=== PATIENT | female | born 1990 | race Caucasian/White ===

== ENCOUNTER 2020-08-15 13:29 | Outpatient (CLI) | payer BC | END 2020-08-15 13:30 | disposition home or self-care (01) | LOC: CSHMRI 13:29 | PROVIDERS: ATTEND Nurse Practitioner Acute Care | DX: G43.109 Migraine with aura, not intractable, without status migrainosus (principal); R90.82 White matter disease, unspecified; E23.7 Disorder of pituitary gland, unspecified | CPT/HCPCS: 70553 ==